=== PATIENT | female | born 1970 ===

== ENCOUNTER 2016-06-17 11:56 | Observation (INO) | payer MEDICAID ==
[2016-06-17 12:04] VITALS: BMI 34.5
[2016-06-17 12:53] LABS: BASO # 0.1 K/uL (0.0-0.2); BASO % 0.6 % (0.0-2.0); EOS # 0.2 K/uL (0.0-0.7); EOS % 2.4 % (0.0-4.0); HEMATOCRIT 40.6 % (34.0-47.0); LYMPH # 2.1 K/uL (1.0-4.3); LYMPH % 24.1 % (20.0-40.0); MEAN CORPUSCULAR HEMOGLOBIN 28.6 pg (27.0-31.0); MEAN CORPUSCULAR HGB CONC 32.5 g/dL (33.0-37.0); MEAN PLATELET VOLUME 8.3 fL (7.2-11.7); MONO # 0.6 K/uL (0.0-0.8); MONO % 6.9 % (0.0-10.0); RED CELL DISTRIBUTION WIDTH 13.3 % (11.5-14.5); WHITE BLOOD COUNT 8.9 K/uL (4.8-10.8)
[2016-06-17 13:00] LABS: CHLORIDE 102 mmol/L (98-107)
[2016-06-17 13:01] LABS: POTASSIUM 4.1 mmol/L (3.6-5.2); SODIUM 140 mmol/L (132-148)
[2016-06-17 13:03] LABS: BILIRUBIN,TOTAL 0.2 mg/dL (0.2-1.3); CARBON DIOXIDE 25 mmol/L (22-30); GFR AFRICAN-AMERICAN > 60
[2016-06-17 13:04] LABS: ALB/GLOB RATIO 1.4 (1.0-2.1); ALKALINE PHOSPHATASE 42 U/L (38-126); ALT/SGPT 20 U/L (9-52); AST/SGOT 16 U/L (14-36); BLOOD UREA NITROGEN 14 mg/dL (7-17); CALCIUM 8.2 mg/dl (8.6-10.4); GLUCOSE,RANDOM 92 mg/dL (65-105); TOTAL PROTEIN 6.5 g/dL (6.3-8.3)
[2016-06-17 13:05] LABS: RBC URINE 2 /hpf (0-3); URINE BILIRUBIN NEGATIVE (NEGATIVE); URINE BLOOD NEGATIVE (NEGATIVE); URINE COLOR Yellow (YELLOW); URINE GLUCOSE (UA) NORMAL (Normal); URINE KETONE NEGATIVE (NEGATIVE); URINE LEUKOCYTE ESTERASE NEG Leu/uL (Negative); URINE PROTEIN NEGATIVE (NEGATIVE); URINE UROBILINOGEN NORMAL mg/dL (0.2-1.0); WBC URINE 3 /hpf (0-5)
--- NOTE | 2016-06-17 14:37 | C.PDOC ---
History Of Present Illness Patient is a 46 y/o female, whose PMHx includes HTN, that presents to the ED for evaluation of intermittent chest pain for the last 5-6 days. Otherwise, denies any shortness of breath, headache, fever, chills, cough, nausea, vomiting , diarrhea, diaphoresis, jaw pain, back pain, lower extremity pain/swelling, or any other associated symptoms at this time. Chief Complaint (Nursing): Chest Pain History Per: Patient History/Exam Limitations: no limitations Onset/Duration Of Symptoms: Days (6) Current Symptoms Are (Timing): Still Present Quality: "Pain" Associated Symptoms: denies: Nausea, Dyspnea, Diaphoresis, Syncope Modifying Factors: None Exacerbating Factors: None Alleviating Factors: None Recent travel outside of the [place]: No Additional History Per: Patient Past Medical History Reviewed: Historical Data, Nursing Documentation, Vital Signs Vital Signs: Last Vital Signs Temp 98.3 F 06/17/16 15:03 Pulse 72 06/17/16 15:03 Resp 20 06/17/16 15:03 BP 137/95 H 06/17/16 15:03 Pulse Ox 99 06/17/16 15:46 - Medical History PMH: Gastritis, HTN Denies: Chronic Kidney Disease Surgical History: Endoscopy - [facility] Procedures APPLICATION OF SPLINT (09/18/13) CORONAR ARTERIOGR-2 CATH (09/21/14) LEFT HEART CARDIAC CATH (09/21/14) LT HEART ANGIOCARDIOGRAM (09/21/14) Family History: States: Unknown Family Hx, DC - Social History Hx Tobacco Use: No Hx Alcohol Use: Yes Hx Substance Use: No - Immunization History Hx Tetanus Toxoid Vaccination: No Hx Influenza Vaccination: No Hx Pneumococcal Vaccination: No Review Of Systems Except As Marked, All Systems Reviewed And Found Negative. Constitutional: Negative for: Fever, Chills Cardiovascular: Positive for: Chest Pain. Negative for: Palpitations, Edema, Light Headedness Respiratory: Negative for: Cough, Shortness of Breath, Sputum, Wheezing Gastrointestinal: Negative for: Nausea, Vomiting, Abdominal Pain Neurological: Negative for: Headache, Dizziness Physical Exam - Physical Exam Appears: Non-toxic, No Acute Distress Skin: Normal Color, Warm, Dry Head: Atraumatic, Normacephalic Eye(s): bilateral: Normal Inspection, EOMI Neck: Normal ROM, Supple Chest: Symmetrical, No Tenderness Cardiovascular: Rhythm Regular Respiratory: Normal Breath Sounds, No Rales, No Rhonchi, No Wheezing Gastrointestinal/Abdominal: Soft, No Tenderness Extremity: Normal ROM, No Pedal Edema, No Deformity Neurological/Psych: Oriented x3, Normal Speech, Normal Cognition ED Course And Treatment - Laboratory Results Result Diagrams: 06/17/16 12:49 06/17/16 12:49 ECG: Interpreted By Me, Viewed By Me ECG Rhythm: Sinus Rhythm ECG Interpretation: No Acute Changes Interpretation Of ECG: Some ST wave elevations. Rate From EC (bpm) O2 Sat by Pulse Oximetry: 99 (on RA) Pulse Ox Interpretation: Normal Progress Note: Labs, EKG, CXR ordered and reviewed. Spoke with hospitalist digital content producer, Dr. Salamanca, who [facility]. Disposition - Disposition Disposition: HOSPITALIZED Disposition Time: 14:37 Condition: FAIR - Clinical Impression Clinical Impression: Chest pain - PA / MARINE FIRER / Resident Statement MD/DO has reviewed & agrees with the documentation as recorded. - Scribe Statement The provider has reviewed the documentation as recorded by the Scribe Brooklynn Bedoya All medical record entries made by the Scribe were at my direction and personally dictated by me. I have reviewed the chart and agree that the record accurately reflects my personal performance of the history, physical exam, medical decision making, and the department course for this patient. I have also personally directed, reviewed, and agree with the discharge instructions and disposition. Decision To Admit - Pt Status Changed To: Hospital Disposition Of: Observation - . Bed Request Type: Telemetry Admitting Physician: Yoel Salamanca Patient Diagnosis: Chest pain
--- NOTE | 2016-06-17 16:02 | CP.PCM.HP ---
<Mario Hart - Last Filed: 06/17/16 18:29> History of Present Illness - History of Present Illness History of Present Illness: CC: Chest pain x 1 week HPI: This is a 46 yo F with PMH significant for HTN and an abnormal stress test that presents with 1 week of sharp and dull chest pain. She states that the pain is left sided and radiates down to her left arm. She does not remember what she was doing when it first began. She states that it fluctuates in intensity and is not dependent upon exertion. Pain is not reproducible with palpation. She does not become sob, diaphoretic or nauseous during the episodes. She was seen back in August of 2014 after being sent in by Dr Hawley after failing a stress test. She had a cardiac catheterization at the time, which was unremarkable and the pt was discharged home in stable condition. Currently, she has minimal chest pain. Denies any fevers, chills, headache, palpitations, cough, nausea, vomiting or any other somatic complaints. PMHx: HTN, left torn knee PSHx: none Home Meds: Unsure, thinks amlodipine but doesnt know dose Allergies: NKDA FMHx: father from [place] at 74, mother from [place] at 50, sister from [place] at 46. Social: Denies smoke/drink/ETOH Present on Admission - Present on Admission Any Indicators Present on Admission: No Review of Systems - Constitutional Constitutional: absent: Chills, Fever - EENT Eyes: absent: Blurred Vision, Pain - Cardiovascular Cardiovascular: Chest Pain. absent: Dyspnea - Respiratory Respiratory: absent: Cough, Dyspnea - Gastrointestinal Gastrointestinal: absent: Nausea, Vomiting - Musculoskeletal Musculoskeletal: absent: Muscle Weakness, Stiffness - Integumentary Integumentary: absent: Pruritus, Rash - Neurological Neurological: absent: Numbness, Tingling Past Patient History - Infectious Disease Hx of Infectious Diseases: None - Past Medical History & Family History Past Medical History?: Yes - Past Social History Smoking Status: Never Smoked - CARDIAC Hx Hypertension: Yes - PULMONARY Hx Respiratory Disorders: No - NEUROLOGICAL Hx Neurological Disorder: No - HEENT Hx HEENT Problems: No - RENAL Hx Chronic Kidney Disease: No - ENDOCRINE/METABOLIC Hx Endocrine Disorders: No - HEMATOLOGICAL/ONCOLOGICAL Hx Blood Disorders: No - INTEGUMENTARY Hx Dermatological Problems: Yes ("SWEET'S SYNDROME) Other/Comment: DIAGNOSED IN [facility] - MUSCULOSKELETAL/RHEUMATOLOGICAL Hx Musculoskeletal Disorders: No - GASTROINTESTINAL Hx Gastritis: Yes - GENITOURINARY/GYNECOLOGICAL Hx Genitourinary Disorders: No - PSYCHIATRIC Hx Substance Use: No - SURGICAL HISTORY Hx Surgeries: Yes - ANESTHESIA Hx Anesthesia: Yes Hx Anesthesia Reactions: No Hx Malignant Hyperthermia: No Meds Allergies/Adverse Reactions: Allergies Allergy/AdvReac Type Severity Reaction Status Date / Time No Known Allergies Allergy Verified 06/17/16 12:15 Physical Exam - Constitutional Appears: Well, Non-toxic, No Acute Distress - Head Exam Head Exam: ATRAUMATIC, NORMOCEPHALIC - Eye Exam Eye Exam: Normal appearance Pupil Exam: PERRL - ENT Exam ENT Exam: Mucous Membranes Moist - Respiratory Exam Respiratory Exam: Clear to Auscultation Bilateral, NORMAL BREATHING PATTERN - Cardiovascular Exam Cardiovascular Exam: +S1, +S2 - GI/Abdominal Exam GI & Abdominal Exam: Normal Bowel Sounds, Soft - Back Exam Back exam: NORMAL INSPECTION - Neurological Exam Neurological exam: Alert, Oriented x3 - Skin Skin Exam: Dry, Warm Results - Vital Signs Recent Vital Signs: Last Vital Signs Temp 98.3 F 06/17/16 15:03 Pulse 72 06/17/16 15:03 Resp 20 06/17/16 15:03 BP 137/95 H 06/17/16 15:03 Pulse Ox 99 06/17/16 15:46 - Labs Result Diagrams: 06/17/16 12:49 06/17/16 12:49 Assessment & Plan - Assessment and Plan (Free Text) Assessment: Chest pain - Abnormal stress test 09/07, unremarkable cath 09/07 - Pain is currently minimal, fluctuates in intensity and character, non- reproducible - EKG - no signs of ischemia - CXR - no active disease - IZABEL neg x 1, f/u serial IZABEL's - Labs: lipids, A1C, Thyroid - ASA, Crestor, resume - Cardiology Consult (Voudouris) - help appreciated - CT angio - dissection protocol - f/u - Echo - f/u HTN - Resume home meds - Losartan 100mg daily, HCTZ 25 mg Daily, Amlodipine 5mg Daily - Monitor and adjust as needed Sweet Syndrome - Being followed outpatient by Rheumatology - Continue Azathioprine 50mg Daily PPX - Protonix - Lovenox - Benadryl PRN insomnia <Mughni,Oyel - Last Filed: 06/18/16 08:13> Results - Vital Signs Recent Vital Signs: Last Vital Signs Temp 97.7 F 06/17/16 23:30 Pulse 79 06/17/16 23:30 Resp 20 06/17/16 23:30 BP 134/93 H 06/17/16 23:30 Pulse Ox 99 06/17/16 23:30 - Labs Result Diagrams: 06/18/16 06:58 06/18/16 06:58 Labs: Laboratory Results - last 24 hr 06/18/16 06:58 WBC 7.5 RBC 4.38 Hgb 12.8 Hct 38.4 MCV 87.8 MCH 29.3 MCHC 33.4 RDW 13.3 Plt Count 210 MPV 8.6 Neut % (Auto) 61.9 Lymph % (Auto) 28.3 [place] % (Auto) 6.2 Eos % (Auto) 2.8 Baso % (Auto) 0.8 Neut # 4.6 Lymph # 2.1 [place] # 0.5 Eos # 0.2 Baso # 0.1 Sodium 141 Potassium 4.8 Chloride 102 Carbon Dioxide 29 Anion Gap 14 BUN 11 Creatinine 0.7 Est GFR ( Amer) > 60 Est GFR (Non-Af Amer) > 60 Random Glucose 95 Calcium 7.9 L Total Bilirubin 0.5 AST 14 ALT 21 Alkaline Phosphatase 42 Total Creatine Kinase 33 CK-MB (Mass) < 0.22 Troponin I, Quant < 0.0120 Total Protein 5.7 L Albumin 3.3 L Globulin 2.4 Albumin/Globulin Ratio 1.4 Triglycerides 194 H D Cholesterol 138 LDL Cholesterol Direct 66 HDL Cholesterol 42 Thyroxine (T4) 5.15 L TSH 3rd Generation 1.96 Attending/Attestation - Attestation I have personally seen and examined this patient.: Yes I have fully participated in the care of the patient.: Yes I have reviewed all pertinent clinical information: Yes Notes (Text): Patient with sweet syndrome, htn, admitted for observation after presenting with chest pain since past 1 week; pain is relatively constant but fluctuates in intensity and radiates to left arm; History is significant for abrnormal stress test in 2015 but with normal cardiac cath; however, patient has a systemic inflammatory condition (sweet syndrome) that although under treatment with immunosuppressive med, may be a risk factor for CAD; further, she has a strong family history of heart disease with her mother and sister with premature from "heart attack"; also, 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
--- NOTE | 2016-06-17 16:51 | RAD ---
HISTORY: CP COMPARISON: 09/21/2014 FINDINGS: LUNGS: No active pulmonary disease. PLEURA: No significant pleural effusion identified, no pneumothorax apparent. CARDIOVASCULAR: The right-sided aortic arch. Normal heart size. OSSEOUS STRUCTURES: No significant abnormalities. VISUALIZED UPPER ABDOMEN: Normal. OTHER FINDINGS: None. IMPRESSION: No acute infiltrate.
[2016-06-18 00:25] VITALS: RESP 20
[2016-06-18 07:15] LABS: CHLORIDE 102 mmol/L (98-107); POTASSIUM 4.8 mmol/L (3.6-5.2); SODIUM 141 mmol/L (132-148)
[2016-06-18 07:16] LABS: BASO # 0.1 K/uL (0.0-0.2); BASO % 0.8 % (0.0-2.0); EOS # 0.2 K/uL (0.0-0.7); EOS % 2.8 % (0.0-4.0); HEMATOCRIT 38.4 % (34.0-47.0); LYMPH # 2.1 K/uL (1.0-4.3); LYMPH % 28.3 % (20.0-40.0); MEAN CELL VOLUME 87.8 fL (81.0-99.0); MEAN CORPUSCULAR HEMOGLOBIN 29.3 pg (27.0-31.0); MEAN CORPUSCULAR HGB CONC 33.4 g/dL (33.0-37.0); MEAN PLATELET VOLUME 8.6 fL (7.2-11.7); MONO # 0.5 K/uL (0.0-0.8); MONO % 6.2 % (0.0-10.0); NRBC % 0.1 % (0.0-2.0); RED CELL DISTRIBUTION WIDTH 13.3 % (11.5-14.5); WHITE BLOOD COUNT 7.5 K/uL (4.8-10.8)
[2016-06-18 07:17] LABS: ALB/GLOB RATIO 1.4 (1.0-2.1); AST/SGOT 14 U/L (14-36); BILIRUBIN,TOTAL 0.5 mg/dL (0.2-1.3); CARBON DIOXIDE 29 mmol/L (22-30); CHOLESTEROL 138 mg/dL (0-199); GFR AFRICAN-AMERICAN > 60; TOTAL PROTEIN 5.7 g/dL (6.3-8.3)
[2016-06-18 07:18] LABS: ALKALINE PHOSPHATASE 42 U/L (38-126); ALT/SGPT 21 U/L (9-52); BLOOD UREA NITROGEN 11 mg/dL (7-17); CALCIUM 7.9 mg/dl (8.6-10.4); GLUCOSE,RANDOM 95 mg/dL (65-105)
[2016-06-18 07:34] LABS: T4 5.15 ug/dL (5.5-11.0)
[2016-06-18 07:48] LABS: THYROID STIMULATING HORMONE 1.96 mIU/L (0.46-4.68)
[2016-06-18] MEDS: Enoxaparin 40 mg Syringe SC SCH ×2 (09:42→09:45)
[2016-06-18] MEDS: Pantoprazole 40 mg EC Tab PO SCH (09:42)
[2016-06-18] MEDS ORDERED: Iodixanol 320 MG/ML 100 ML BOTTLE IV ONE (09:55)
--- NOTE | 2016-06-18 12:00 | CT ---
PROCEDURE: CT Angiography Chest, Abdomen and Pelvis with and without intravenous contrast HISTORY: chest pain r/o dissection COMPARISON: CT abdomen/ pelvis 09/22/2014 TECHNIQUE: Contiguous axial images of the chest, abdomen and pelvis were obtained in the phase of aortic enhancement. A noncontrast enhanced CT of the chest was also obtained to evaluate for possible intramural thrombus. Coronal and sagittal reformats were generated. IV dose administered: 100 mL Visipaque 320 Radiation dose: Total exam DLP = 1484.52 mGy-cm. FINDINGS: CT ANGIOGRAPHY OF THE CHEST WITH & WITHOUT CONTRAST: AORTA (CHEST AND ABDOMEN): The thoracic and abdominal aorta are significant only for right-sided aortic arch with aberrant left subclavian artery, without aneurysm, dissection or rupture. No intramural thrombus identified in the thoracic aorta on the non-contrast ct of the chest. There is high-grade stenosis of the celiac axis as demonstrated on CT of 09/22/2014. The superior mesenteric artery is unremarkable in appearance. The renal arteries are unremarkable. The pelvic arteries are unremarkable. LUNGS: Mild nonspecific mosaic attenuation in both lower lobes. No consolidation. No pulmonary mass. MEDIASTINUM: Unremarkable. Normal caliber aorta and pulmonary arterial trunk. No aortic dissection. Normal size heart. LYMPH NODES: Unremarkable. PLEURA: Unremarkable. No pneumothorax. No pleural fluid. BONES: Unremarkable. OTHER FINDINGS: None. CT ANGIOGRAPHY OF THE ABDOMEN AND PELVIS WITH CONTRAST: LIVER: Unremarkable. No gross lesion or ductal dilatation. GALLBLADDER AND BILE DUCTS: Unremarkable. PANCREAS: Unremarkable. No gross lesion or ductal dilatation. SPLEEN: Unremarkable. ADRENALS: Unremarkable. No mass. KIDNEYS AND URETERS: Unremarkable. No hydronephrosis. No solid mass. VASCULATURE: Unremarkable. No aortic aneurysm. STOMACH AND BOWEL: Unremarkable. No obstruction. No gross mural thickening. APPENDIX: Normal appendix. PERITONEUM: Unremarkable. No free fluid. No free air. LYMPH NODES: Unremarkable. No enlarged lymph nodes. BLADDER: Visualized portions are unremarkable. REPRODUCTIVE: Unremarkable uterus. BONES: No acute fracture. OTHER FINDINGS: None. IMPRESSION: No evidence of thoracic or abdominal aortic dissection or aneurysm. 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 High-grade stenosis of the celiac axis unchanged from 09/22/2014. Stable mosaic attenuation of both lower lobes, nonspecific. No infiltrate. No additional abnormality.
--- NOTE | 2016-06-18 14:49 | CP.PCM.PN ---
Subjective - Date & Time of Evaluation Date of Evaluation: 06/18/16 Time of Evaluation: 14:45 - Subjective Subjective: PGY-1 note for medicine service Pt seen and examined at bedside. She continues to report waxing and waning chest pain that radiates down her left arm. Denies any diaphoresis, nausea, vomiting, sob, headaches, fevers or chills. Objective - Vital Signs/Intake and Output Vital Signs (last 24 hours): Temp Pulse Resp BP Pulse Ox 97.2 F L 71 20 136/86 100 06/18/16 08:00 06/18/16 08:00 06/18/16 08:00 06/18/16 08:00 06/18/16 08:00 Intake and Output: 06/18/16 06/18/16 06:59 18:59 Intake Total 100 Balance 100 - Medications Medications: Current Medications Amlodipine Besylate (Norvasc) 5 mg PO DAILY [facility] Last Admin: 06/18/16 09:42 Dose: 5 mg Aspirin (Aspirin Chewable) 81 mg PO DAILY [facility] Last Admin: 06/18/16 09:42 Dose: 81 mg Azathioprine (Imuran) 50 mg PO DAILY [facility] Last Admin: 06/18/16 09:42 Dose: 50 mg Diphenhydramine HCl (Benadryl) 25 mg PO HS PRN PRN Reason: Insomnia Last Admin: 06/17/16 22:02 Dose: 25 mg Enoxaparin Sodium (Lovenox) 40 mg SC DAILY [facility] Last Admin: 06/18/16 09:45 Dose: Not Given Hydrochlorothiazide (Hydrodiuril) 25 mg PO DAILY [facility] Last Admin: 06/18/16 09:42 Dose: 25 mg Losartan Potassium (Cozaar) 100 mg PO DAILY [facility] Last Admin: 06/18/16 09:42 Dose: 100 mg Pantoprazole Sodium (Protonix Ec Tab) 40 mg PO DAILY [facility] Last Admin: 06/18/16 09:42 Dose: 40 mg Paroxetine HCl (Paxil) 10 mg PO HS [facility] Last Admin: 06/17/16 22:02 Dose: 10 mg Rosuvastatin Calcium (Crestor) 5 mg PO HS [facility] Last Admin: 06/17/16 22:02 Dose: 5 mg - Labs Labs: 06/18/16 06:58 06/18/16 06:58 PT 11.7 SECONDS (9.7-12.2) 06/17/16 12:49 INR 1.0 06/17/16 12:49 APTT 30 SECONDS (21-34) 06/17/16 12:49 - Constitutional Appears: Non-toxic, No Acute Distress - Head Exam Head Exam: ATRAUMATIC, NORMOCEPHALIC - Eye Exam Eye Exam: Normal appearance - ENT Exam ENT Exam: Mucous Membranes Moist - Respiratory Exam Respiratory Exam: Clear to Ausculation Bilateral, NORMAL BREATHING PATTERN - Cardiovascular Exam Cardiovascular Exam: +S1, +S2 - GI/Abdominal Exam GI & Abdominal Exam: Soft, Normal Bowel Sounds - Extremities Exam Extremities Exam: Normal Capillary Refill, Normal Inspection - Back Exam Back Exam: NORMAL INSPECTION - Neurological Exam Neurological Exam: Alert, Awake - Skin Skin Exam: Dry, Warm Assessment and Plan - Assessment and Plan (Free Text) Assessment: Chest pain - Abnormal stress test 09/07, unremarkable cath 09/07 - Pain is currently minimal, fluctuates in intensity and character, non- reproducible - EKG - no signs of ischemia - CXR - no active disease - IZABEL neg x 3 - Labs: lipids, A1C, Thyroid - Trigs elevated - A1c - sunday - Thyroid - WNL - ASA, Crestor, resume - Cardiology Consult (Voudouris) - help appreciated - CT angio - dissection protocol - negative - Echo - f/u HTN - Resume home meds - Losartan 100mg daily, HCTZ 25 mg Daily, Amlodipine 5mg Daily - Monitor and adjust as needed Sweet Syndrome - Being followed outpatient by Rheumatology - Continue Azathioprine 50mg Daily PPX - Protonix - Lovenox - Benadryl PRN insomnia
[2016-06-19 08:13] LABS: BASO # 0.1 K/uL (0.0-0.2); BASO % 0.7 % (0.0-2.0); EOS # 0.2 K/uL (0.0-0.7); EOS % 2.5 % (0.0-4.0); HEMATOCRIT 41.5 % (34.0-47.0); LYMPH # 1.9 K/uL (1.0-4.3); LYMPH % 21.4 % (20.0-40.0); MEAN CELL VOLUME 86.5 fL (81.0-99.0); MEAN CORPUSCULAR HEMOGLOBIN 29.4 pg (27.0-31.0); MEAN PLATELET VOLUME 8.7 fL (7.2-11.7); MONO # 0.6 K/uL (0.0-0.8); MONO % 6.7 % (0.0-10.0); NRBC % 0.1 % (0.0-2.0); RED CELL DISTRIBUTION WIDTH 13.3 % (11.5-14.5); WHITE BLOOD COUNT 8.9 K/uL (4.8-10.8)
[2016-06-19 08:19] LABS: CHLORIDE 97 mmol/L (98-107); POTASSIUM 3.8 mmol/L (3.6-5.2); SODIUM 137 mmol/L (132-148)
[2016-06-19 08:22] LABS: ALB/GLOB RATIO 1.4 (1.0-2.1); ALKALINE PHOSPHATASE 41 U/L (38-126); ALT/SGPT 15 U/L (9-52); AST/SGOT 15 U/L (14-36); BILIRUBIN,TOTAL 0.4 mg/dL (0.2-1.3); BLOOD UREA NITROGEN 11 mg/dL (7-17); CARBON DIOXIDE 25 mmol/L (22-30); GFR AFRICAN-AMERICAN > 60; GLUCOSE,RANDOM 94 mg/dL (65-105)
[2016-06-19 08:23] LABS: CALCIUM 8.4 mg/dl (8.6-10.4)
[2016-06-19] MEDS: Enoxaparin 40 mg Syringe SC SCH (10:08)
[2016-06-19] MEDS: Pantoprazole 40 mg EC Tab PO SCH (10:08)
--- NOTE | 2016-06-19 10:08 | CP.PCM.PN ---
Subjective - Date & Time of Evaluation Date of Evaluation: 06/19/16 Time of Evaluation: 07:05 - Subjective Subjective: PGY-1 note for medicine service Pt seen and examined at bedside. She continues to report waxing and waning chest pain that radiates down her left arm. Denies any diaphoresis, nausea, vomiting, sob, headaches, fevers or chills. Objective - Vital Signs/Intake and Output Vital Signs (last 24 hours): Temp Pulse Resp BP Pulse Ox 97.7 F 83 20 115/81 98 06/19/16 00:05 06/19/16 00:05 06/19/16 00:05 06/19/16 00:05 06/19/16 00:05 Intake and Output: 06/19/16 06/19/16 06:59 18:59 Intake Total 440 Balance 440 - Medications Medications: Current Medications Amlodipine Besylate (Norvasc) 5 mg PO DAILY [facility] Last Admin: 06/18/16 09:42 Dose: 5 mg Aspirin (Aspirin Chewable) 81 mg PO DAILY [facility] Last Admin: 06/18/16 09:42 Dose: 81 mg Azathioprine (Imuran) 50 mg PO DAILY [facility] Last Admin: 06/18/16 09:42 Dose: 50 mg Diphenhydramine HCl (Benadryl) 25 mg PO HS PRN PRN Reason: Insomnia Last Admin: 06/18/16 21:29 Dose: 25 mg Enoxaparin Sodium (Lovenox) 40 mg SC DAILY [facility] Last Admin: 06/18/16 09:45 Dose: Not Given Hydrochlorothiazide (Hydrodiuril) 25 mg PO DAILY [facility] Last Admin: 06/18/16 09:42 Dose: 25 mg Losartan Potassium (Cozaar) 100 mg PO DAILY [facility] Last Admin: 06/18/16 09:42 Dose: 100 mg Pantoprazole Sodium (Protonix Ec Tab) 40 mg PO DAILY [facility] Last Admin: 06/18/16 09:42 Dose: 40 mg Paroxetine HCl (Paxil) 10 mg PO HS [facility] Last Admin: 06/18/16 21:29 Dose: 10 mg Rosuvastatin Calcium (Crestor) 5 mg PO HS [facility] Last Admin: 06/18/16 21:31 Dose: 5 mg - Labs Labs: 06/19/16 08:02 06/19/16 08:02 PT 11.7 SECONDS (9.7-12.2) 06/17/16 12:49 INR 1.0 06/17/16 12:49 APTT 30 SECONDS (21-34) 06/17/16 12:49 - Additional Findings Additional findings: - Constitutional Appears: Non-toxic, No Acute Distress - Head Exam Head Exam: ATRAUMATIC, NORMOCEPHALIC - Eye Exam Eye Exam: Normal appearance - ENT Exam ENT Exam: Mucous Membranes Moist - Respiratory Exam Respiratory Exam: Clear to Ausculation Bilateral, NORMAL BREATHING PATTERN - Cardiovascular Exam Cardiovascular Exam: +S1, +S2 - GI/Abdominal Exam GI & Abdominal Exam: Soft, Normal Bowel Sounds - Extremities Exam Extremities Exam: Normal Capillary Refill, Normal Inspection - Back Exam Back Exam: NORMAL INSPECTION - Neurological Exam Neurological Exam: Alert, Awake - Skin Skin Exam: Dry, Warm Assessment and Plan - Assessment and Plan (Free Text) Assessment: Chest pain - Abnormal stress test 09/07, unremarkable cath 09/07 - Pain is currently minimal, fluctuates in intensity and character, non- reproducible - EKG - no signs of ischemia - CXR - no active disease - IZABEL neg x 3 - Labs: lipids, A1C, Thyroid - Trigs elevated - A1c - sunday - Thyroid - WNL - ASA, Crestor, resume - Cardiology Consult (Voudouris) - help appreciated - CT angio - dissection protocol - negative - Echo - f/u HTN - Resume home meds - Losartan 100mg daily, HCTZ 25 mg Daily, Amlodipine 5mg Daily - Monitor and adjust as needed Sweet Syndrome - Being followed outpatient by Rheumatology - Continue Azathioprine 50mg Daily PPX - Protonix - Lovenox - Benadryl PRN insomnia
[2016-06-19 10:29] VITALS: BP 117/84; PULSE 74; TEMP 97.9; O2SAT 100
--- NOTE | 2016-06-19 16:02 | CARD ---
APPROVED REPORT EXAM: Two-dimensional and M-mode echocardiogram with Doppler and color Doppler. Other Information Quality : GoodRhythm : INDICATION Dyspnea Chest Pain M-Mode DIMENSIONS RVDd2.18 (2.1-3.2cm)Left Atrium (MM)3.22 (2.5-4.0cm) IVSd0.81 (0.7-1.1cm)Aortic Root2.60 (2.2-3.7cm) LVDd4.49 (4.0-5.6cm)Aortic Cusp Exc.1.98 (1.5-2.0cm) PWd1.04 (0.7-1.1cm)FS (%) 29 % LVDs3.19 (2.0-3.8cm)LVEF (%)56 (>50%) Mitral Valve MV E Lmieufxf99.3cm/sMV A Haixeuog84.5cm/sE/A ratio0.7 TDI E/Lateral E'0.0E/Medial E'0.0 <Conclusion> normal size la,lv & ra rv. normal lv wall motion,thickness,systolic function with lvef of 55-60%. lv diastolic dysfunciton grade one. normal aortic,mitral,tv & pv. mild mr,trace tr. no pericardial effusion.
--- NOTE | 2016-06-19 20:58 | CP.PCM.DIS ---
Provider - Provider Date of Admission: 06/17/16 14:38 Attending physician: Yoel Salamanca MD Consults: Cardio: Dr. King Time Spent in preparation of Discharge (in minutes): 35 Hospital Course - Lab Results Lab Results: Most Recent Lab Values WBC 8.9 K/uL (4.8-10.8) 06/19/16 08:02 RBC 4.80 Mil/uL (3.80-5.20) 06/19/16 08:02 Hgb 14.1 g/dL (11.0-16.0) 06/19/16 08:02 Hct 41.5 % (34.0-47.0) 06/19/16 08:02 MCV 86.5 fL (81.0-99.0) 06/19/16 08:02 MCH 29.4 pg (27.0-31.0) 06/19/16 08:02 MCHC 34.0 g/dL (33.0-37.0) 06/19/16 08:02 RDW 13.3 % (11.5-14.5) 06/19/16 08:02 Plt Count 245 K/uL (130-400) 06/19/16 08:02 MPV 8.7 fL (7.2-11.7) 06/19/16 08:02 Neut % (Auto) 68.7 % (50.0-75.0) 06/19/16 08:02 Lymph % (Auto) 21.4 % (20.0-40.0) 06/19/16 08:02 Kern % (Auto) 6.7 % (0.0-10.0) 06/19/16 08:02 Eos % (Auto) 2.5 % (0.0-4.0) 06/19/16 08:02 Baso % (Auto) 0.7 % (0.0-2.0) 06/19/16 08:02 Neut # 6.1 K/uL (1.8-7.0) 06/19/16 08:02 Lymph # 1.9 K/uL (1.0-4.3) 06/19/16 08:02 Kern # 0.6 K/uL (0.0-0.8) 06/19/16 08:02 Eos # 0.2 K/uL (0.0-0.7) 06/19/16 08:02 Baso # 0.1 K/uL (0.0-0.2) 06/19/16 08:02 PT 11.7 SECONDS (9.7-12.2) 06/17/16 12:49 INR 1.0 06/17/16 12:49 APTT 30 SECONDS (21-34) 06/17/16 12:49 Sodium 137 mmol/L (132-148) 06/19/16 08:02 Potassium 3.8 mmol/L (3.6-5.2) 06/19/16 08:02 Chloride 97 mmol/L (98-107) L 06/19/16 08:02 Carbon Dioxide 25 mmol/L (22-30) 06/19/16 08:02 Anion Gap 18 (10-20) 06/19/16 08:02 BUN 11 mg/dL (7-17) 06/19/16 08:02 Creatinine 0.7 MG/DL (0.7-1.2) 06/19/16 08:02 Est GFR ( Amer) > 60 06/19/16 08:02 Est GFR (Non-Af Amer) > 60 06/19/16 08:02 Random Glucose 94 mg/dL (65-105) 06/19/16 08:02 Hemoglobin A1c 5.6 % (4.2-6.5) 06/18/16 06:58 Calcium 8.4 mg/dl (8.6-10.4) L 06/19/16 08:02 Total Bilirubin 0.4 mg/dL (0.2-1.3) 06/19/16 08:02 AST 15 U/L (14-36) 06/19/16 08:02 ALT 15 U/L (9-52) 06/19/16 08:02 Alkaline Phosphatase 41 U/L (38-126) 06/19/16 08:02 Total Creatine Kinase 33 U/L (30-135) 06/18/16 06:58 CK-MB (Mass) < 0.22 ng/mL (0.0-3.38) 06/18/16 06:58 Troponin I < 0.0120 ng/mL (0.00-0.120) 06/17/16 12:49 Troponin I, Quant < 0.0120 ng/mL (0.00-0.120) 06/18/16 06:58 Total Protein 6.0 g/dL (6.3-8.3) L 06/19/16 08:02 Albumin 3.5 g/dL (3.5-5.0) 06/19/16 08:02 Globulin 2.5 gm/dL (2.2-3.9) 06/19/16 08:02 Albumin/Globulin Ratio 1.4 (1.0-2.1) 06/19/16 08:02 Triglycerides 194 mg/dL (0-149) H D 06/18/16 06:58 Cholesterol 138 mg/dL (0-199) 06/18/16 06:58 LDL Cholesterol Direct 66 mg/dL (0-129) 06/18/16 06:58 HDL Cholesterol 42 mg/dL (30-70) 06/18/16 06:58 Thyroxine (T4) 5.15 ug/dL (5.5-11.0) L 06/18/16 06:58 TSH 3rd Generation 1.96 mIU/L (0.46-4.68) 06/18/16 06:58 Urine Color Yellow (YELLOW) 06/17/16 12:49 Urine Clarity Hazy (Clear) 06/17/16 12:49 Urine pH 5.0 (5.0-8.0) 06/17/16 12:49 Ur Specific [place] 1.029 (1.003-1.030) 06/17/16 12:49 Urine Protein Negative mg/dL (NEGATIVE) 06/17/16 12:49 Urine Glucose (UA) Normal mg/dL (Normal) 06/17/16 12:49 Urine Ketones Negative mg/dL (NEGATIVE) 06/17/16 12:49 Urine Blood Negative (NEGATIVE) 06/17/16 12:49 Urine Nitrate Negative (NEGATIVE) 06/17/16 12:49 Urine Bilirubin Negative (NEGATIVE) 06/17/16 12:49 Urine Urobilinogen Normal mg/dL (0.2-1.0) 06/17/16 12:49 Ur Leukocyte Esterase Neg Be/uL (Negative) 06/17/16 12:49 Urine WBC (Auto) 3 /hpf (0-5) 06/17/16 12:49 Urine RBC (Auto) 2 /hpf (0-3) 06/17/16 12:49 Ur Squamous Epith Cells 5 /hpf (0-5) 06/17/16 12:49 Urine HCG, Qual Negative (NEGATIVE) 06/17/16 12:49 - Hospital Course Hospital Course: Upon hospital admission: This is a 46 yo F with PMH significant for HTN and an abnormal stress test that presents with 1 week of sharp and dull chest pain. She states that the pain is left sided and radiates down to her left arm. She does not remember what she was doing when it first began. She states that it fluctuates in intensity and is not dependent upon exertion. Pain is not reproducible with palpation. She does not become sob, diaphoretic or nauseous during the episodes. She was seen back in August of 2014 after being sent in by Dr Hawley after failing a stress test. She had a cardiac catheterization at the time, which was unremarkable and the pt was discharged home in stable condition. Currently, she has minimal chest pain. Denies any fevers, chills, headache, palpitations, cough, nausea, vomiting or any other somatic complaints. PMHx: HTN, left torn knee PSHx: none Home Meds: Unsure, thinks amlodipine but doesnt know dose Allergies: NKDA FMHx: father from OR at 74, mother from OR at 50, sister from OR at 46. Social: Denies smoke/drink/ETOH During hospital course, the patient was evaluated and treated for the following : (1) Chest pain for which Abnormal stress test 09/07, unremarkable cath 09/07. Pain is currently minimal, fluctuates in intensity and character, non- reproducible. EKG - no signs of ischemia. CXR - no active disease. IZABEL neg x 3. Trigs elevated; A1c - 5.6; Thyroid - WNL. Patient tx with ASA, Crestor. Cardiology Consult (Marleen). CT angio - dissection protocol - negative. Echo read EF 55-60% and Diastolic dysfunction grade one. (2) HTN for which home meds were resumed: Losartan 100mg daily, HCTZ 25 mg Daily, Amlodipine 5mg Daily. 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 Continued Azathioprine 50mg Daily. Upon hospital discharge, the patient was provided with the following instructions: Patient is stable for discharge per Dr. Salamanca. Patient should resume all medications as outlined in this document. Additionally, patient should take the new medications listed below (scripts provided). 1. Please make an appointment and follow up with Primary Doctor within one week of discharge. If patient does not have a Primary Doctor, please follow up with [facility] to establish medical care, at [phone]. 2. Please make an appointment and follow up with your [facility] Spreader, Dr. King - to have a Cardiac Stress test performed as an outpatient. Patient should return to ED immediately if symptoms return or worsen. Instructions discussed with patient who understood and agreed. Newly prescribed medications: ASA 81mg PO daily Crestor 5mg PO HS Norvasc 5mg PO HS This is a summary of the patient's hospital admission, see chart for comprehensive detail. - Date & Time of H&P Date of H&P: 06/17/16 Time of H&P: 15:53 Discharge Exam - Additional Findings Additional findings: - Constitutional Appears: Non-toxic, No Acute Distress - Head Exam Head Exam: ATRAUMATIC, NORMOCEPHALIC - Eye Exam Eye Exam: Normal appearance - ENT Exam ENT Exam: Mucous Membranes Moist - Respiratory Exam Respiratory Exam: Clear to Ausculation Bilateral, NORMAL BREATHING PATTERN - Cardiovascular Exam Cardiovascular Exam: +S1, +S2 - GI/Abdominal Exam GI & Abdominal Exam: Soft, Normal Bowel Sounds - Extremities Exam Extremities Exam: Normal Capillary Refill, Normal Inspection - Back Exam Back Exam: NORMAL INSPECTION - Neurological Exam Neurological Exam: Alert, Awake - Skin Skin Exam: Dry, Warm Discharge Plan - Discharge Medications Prescriptions: Aspirin [Aspirin Chewable] 81 mg PO DAILY #30 chew Rosuvastatin Calcium [Crestor] 5 mg PO HS #30 tab amLODIPine [Norvasc] 5 mg PO DAILY #30 tab - Follow Up Plan Condition: FAIR Disposition: HOME/ ROUTINE Instructions: Aspirin/Codeine (By mouth), Amlodipine (By mouth), Rosuvastatin ( By mouth), Chest Pain (DC), Heart Healthy Diet (GEN) Additional Instructions: Patient is stable for discharge per Dr. Salamanca. Patient should resume all medications as outlined in this document. Additionally, patient should take the new medications listed below (scripts provided). 1. Please make an appointment and follow up with Primary Doctor within one week of discharge. If patient does not have a Primary Doctor, please follow up with [facility] to establish medical care, at [phone]. 2. Please make an appointment and follow up with your [facility] Spreader, Dr. King - to have a Cardiac Stress test performed as an outpatient. Patient should return to ED immediately if symptoms return or worsen. Instructions discussed with patient who understood and agreed. Newly prescribed medications: ASA 81mg PO daily Crestor 5mg PO HS Norvasc 5mg PO HS
--- NOTE | 2016-06-20 10:07 | CP.PCM.PN ---
Subjective - Date & Time of Evaluation Date of Evaluation: 06/20/16 Time of Evaluation: 10:05 - Subjective Subjective: Spoke with [facility] pharmacist, Marcos, reporting patient's insurance does not cover Crestor 5mg POqHS; switched to Simvastatin 20mg POqHS which is approved per discussion with pharmacist.; No allergies reported per EMR. (Pharmacy: ) Objective - Vital Signs/Intake and Output Vital Signs (last 24 hours): Temp Pulse Resp BP Pulse Ox 97.9 F 74 20 117/84 100 06/19/16 10:28 06/19/16 10:28 06/19/16 10:28 06/19/16 10:28 06/19/16 10:28 - Labs Labs: 06/19/16 08:02 06/19/16 08:02 PT 11.7 SECONDS (9.7-12.2) 06/17/16 12:49 INR 1.0 06/17/16 12:49 APTT 30 SECONDS (21-34) 06/17/16 12:49
--- NOTE | 2016-06-20 23:50 | CP.PCM.CON ---
History of Present Illness - History of Present Illness History of Present Illness: CC chest pain HPI 46 y/o hisp female admitted due to recurrent atypical/typical chest pain for a few days.Pt described the chest paim as precordial and radiating to left arm and not associated to effort. Pt had a cardiac cath in Mar 2015 which revealed normal coronaries and normal LVgram. Trops - negative Review of Systems - Constitutional Constitutional: absent: Daytime Sleepiness, Lethargy, Malaise, Snoring, Sleep Apnea - EENT Eyes: absent: Photophobia Ears: absent: Tinnitus Nose/Mouth/Throat: absent: Neck Pain - Cardiovascular Cardiovascular: Chest Pain, Chest Pain at Rest, Chest Pain with Activity, Palpitations - Respiratory Respiratory: Dyspnea - Gastrointestinal Gastrointestinal: absent: Abdominal Pain, Cramping - Musculoskeletal Musculoskeletal: absent: Back Pain, Muscle Weakness, Myalgias Past Patient History - Infectious Disease Hx of Infectious Diseases: None - Past Medical History & Family History Past Medical History?: Yes - Past Social History Smoking Status: Never Smoked - CARDIAC Hx Hypertension: Yes - PULMONARY Hx Respiratory Disorders: No - NEUROLOGICAL Hx Neurological Disorder: No - HEENT Hx HEENT Problems: No - RENAL Hx Chronic Kidney Disease: No - ENDOCRINE/METABOLIC Hx Endocrine Disorders: No - HEMATOLOGICAL/ONCOLOGICAL Hx Blood Disorders: No - INTEGUMENTARY Hx Dermatological Problems: Yes ("SWEET'S SYNDROME) Other/Comment: DIAGNOSED IN [facility] - MUSCULOSKELETAL/RHEUMATOLOGICAL Hx Musculoskeletal Disorders: No - GASTROINTESTINAL Hx Gastritis: Yes - GENITOURINARY/GYNECOLOGICAL Hx Genitourinary Disorders: No - PSYCHIATRIC Hx Substance Use: No - SURGICAL HISTORY Hx Surgeries: Yes - ANESTHESIA Hx Anesthesia: Yes Hx Anesthesia Reactions: No Hx Malignant Hyperthermia: No Meds Home Medications: Home Medication List Medication Instructions Recorded Confirmed Type Aspirin [Aspirin Chewable] 81 mg PO DAILY #30 chew 06/19/16 Rx Losartan [Cozaar] 100 mg PO DAILY tab 06/19/16 Rx PARoxetine [Paxil] 10 mg PO HS tab 06/19/16 Rx Rosuvastatin Calcium [Crestor] 5 mg PO HS #30 tab 06/19/16 Rx amLODIPine [Norvasc] 5 mg PO DAILY #30 tab 06/19/16 Rx azaTHIOprine [Imuran] 50 mg PO DAILY tab 06/19/16 Rx hydroCHLOROthiazide [Hydrodiuril] 25 mg PO DAILY tab 06/19/16 Rx predniSONE [predniSONE Tab] 10 mg PO DAILY tab 06/19/16 Rx Allergies/Adverse Reactions: Allergies Allergy/AdvReac Type Severity Reaction Status Date / Time No Known Allergies Allergy Verified 06/17/16 12:15 Physical Exam - Constitutional Appears: Non-toxic - Head Exam Head Exam: NORMAL INSPECTION - Eye Exam Eye Exam: PERRL. absent: Scleral icterus - ENT Exam ENT Exam: Mucous Membranes Moist - Respiratory Exam Respiratory Exam: Clear to Auscultation Bilateral - Cardiovascular Exam Cardiovascular Exam: REGULAR RHYTHM - GI/Abdominal Exam GI & Abdominal Exam: Normal Bowel Sounds, Soft - Extremities Exam Extremities exam: Positive for: calf tenderness. Negative for: pedal edema - Neurological Exam Neurological exam: Alert, CN II-XII Intact, Oriented x3 Results - Vital Signs Recent Vital Signs: Last Vital Signs Temp 97.9 F 06/19/16 10:28 Pulse 74 06/19/16 10:28 Resp 20 06/19/16 10:28 BP 117/84 06/19/16 10:28 Pulse Ox 100 06/19/16 10:28 - Labs Result Diagrams: 06/19/16 08:02 06/19/16 08:02 Assessment & Plan - Assessment and Plan (Free Text) Assessment: Atypical Chest pain - doubt CAD Anxiety Plan: Pt can be discharged and continue work up as outpatient.
== END 2016-06-19 14:08 | disposition home or self-care (01) ==
LOC: C.ER 11:56 → C.9E 14:38 → C.5T 18:02
PROVIDERS: ADMIT Internal Medicine Nephrology; ATTEND Internal Medicine Nephrology
DX: R07.9 Chest pain, unspecified (principal); I12.9 Hypertensive chronic kidney disease with stage 1 through stage 4 chronic kidney disease, or unspecified chronic kidney disease; N18.9 Chronic kidney disease, unspecified; L98.2 Febrile neutrophilic dermatosis [Sweet]
CPT/HCPCS: 36415 ×2; 71010; 71275; 74175; 80053 ×3; 80061; 81001; 82550; 82553; 83036; 84436; 84443; 84484 ×2; 84703; 85025 ×3; 85610; 85730; 93005; 93306; 99284; G0378 ×3; J7500 ×2; Q9967

== ENCOUNTER 2017-01-16 11:15 | Emergency (ER) | payer MEDICAID, OTHER ==
[2017-01-16 11:15] VITALS: BMI 34.5
[2017-01-16 11:26] VITALS: RESP 18; O2SAT 100
[2017-01-16] MEDS ORDERED: Sodium Chloride 0.9% 1,000 ML IV ONE (12:25)
[2017-01-16] MEDS ORDERED: Sodium Chloride 0.9% 1,000 ML ONE (12:38)
[2017-01-16 12:59] LABS: BASO # 0.1 K/uL (0.0-0.2); BASO % 0.9 % (0.0-2.0); EOS # 0.2 K/uL (0.0-0.7); EOS % 1.9 % (0.0-4.0); HEMATOCRIT 40.2 % (34.0-47.0); LYMPH # 2.8 K/uL (1.0-4.3); LYMPH % 30.8 % (20.0-40.0); MEAN CELL VOLUME 88.2 fL (81.0-99.0); MEAN CORPUSCULAR HEMOGLOBIN 30.5 pg (27.0-31.0); MEAN CORPUSCULAR HGB CONC 34.5 g/dL (33.0-37.0); MEAN PLATELET VOLUME 8.2 fL (7.2-11.7); MONO # 0.4 K/uL (0.0-0.8); MONO % 4.6 % (0.0-10.0); RED CELL DISTRIBUTION WIDTH 13.6 % (11.5-14.5)
[2017-01-16 13:08] LABS: CHLORIDE 101 mmol/L (98-107); POTASSIUM 3.8 mmol/L (3.6-5.2); SODIUM 134 mmol/L (132-148)
[2017-01-16 13:10] LABS: ALB/GLOB RATIO 1.1 (1.0-2.1); AST/SGOT 13 U/L (14-36); BILIRUBIN,TOTAL 0.6 mg/dL (0.2-1.3); CARBON DIOXIDE 23 mmol/L (22-30); GFR AFRICAN-AMERICAN > 60; TOTAL PROTEIN 7.2 g/dL (6.3-8.3)
[2017-01-16 13:11] LABS: ALKALINE PHOSPHATASE 51 U/L (38-126); ALT/SGPT 24 U/L (9-52); BLOOD UREA NITROGEN 12 mg/dL (7-17); CALCIUM 8.8 mg/dl (8.6-10.4); GLUCOSE,RANDOM 78 mg/dL (65-105)
--- NOTE | 2017-01-16 13:56 | C.PDOC ---
History Of Present Illness 46 year old female presents to ED with two complaints of low back pain and epigastric abdominal pain. She reports right lower back pain which radiates down the leg for several months. For the past few days pain worse and had been taking aleve, which may have upset her stomach and for 2 days complains of epigastric abdominal pain and fullness. She states she has been told has gastritis but does not take medication. She denies any fever, vomiting, diarrhea , constipation, dysuria, numbness or weakness. Time Seen by Provider: 01/16/17 11:40 Chief Complaint (Nursing): Abdominal Pain History Per: Patient History/Exam Limitations: no limitations Onset/Duration Of Symptoms: Days Current Symptoms Are (Timing): Still Present Recent travel outside of the [place]: No Additional History Per: Patient Past Medical History Reviewed: Historical Data, Nursing Documentation, Vital Signs Vital Signs: Last Vital Signs Temp 97.3 F L 01/16/17 14:54 Pulse 73 01/16/17 14:54 Resp 18 01/16/17 14:54 BP 145/100 H 01/16/17 14:54 Pulse Ox 100 01/16/17 14:54 - Medical History PMH: Gastritis, HTN Denies: Chronic Kidney Disease Surgical History: Endoscopy - [facility] Procedures APPLICATION OF SPLINT (09/18/13) CORONAR ARTERIOGR-2 CATH (09/21/14) LEFT HEART CARDIAC CATH (09/21/14) LT HEART ANGIOCARDIOGRAM (09/21/14) Family History: States: Unknown Family Hx, [place] - Social History Hx Tobacco Use: No Hx Alcohol Use: Yes ("social") Hx Substance Use: No - Immunization History Hx Tetanus Toxoid Vaccination: No Hx Influenza Vaccination: No Hx Pneumococcal Vaccination: No Review Of Systems Except As Marked, All Systems Reviewed And Found Negative. Constitutional: Negative for: Fever, Chills Gastrointestinal: Positive for: Abdominal Pain (epigastric). Negative for: Nausea, Vomiting, Diarrhea, Constipation Genitourinary: Negative for: Dysuria, Frequency, Incontinence, Hematuria Musculoskeletal: Positive for: Back Pain (low) Neurological: Negative for: Weakness, Numbness Physical Exam - Physical Exam Appears: Non-toxic, No Acute Distress Skin: Normal Color, Warm, Dry Head: Atraumatic, Normacephalic Eye(s): bilateral: Normal Inspection Oral Mucosa: Moist Neck: Normal ROM, Supple Chest: Symmetrical Cardiovascular: Rhythm Regular, No Murmur Respiratory: Normal Breath Sounds, No Rales, No Rhonchi, No Wheezing Gastrointestinal/Abdominal: Bowel Sounds (normal), Soft, Tenderness (minimal epigastric), No Guarding, No Rebound Back: No CVA Tenderness, No Vertebral Tenderness, Paraspinal Tenderness (mild paralumbar) Extremity: Bilateral: Atraumatic, Normal ROM Neurological/Psych: Oriented x3, Normal Speech Gait: Steady ED Course And Treatment - Laboratory Results Result Diagrams: 01/16/17 12:55 01/16/17 12:55 O2 Sat by Pulse Oximetry: 100 (RA) Pulse Ox Interpretation: Normal Medical Decision Making Medical Decision Making: Impression: sciatica type pain and epigastric abdominal pain Plan: * labs * UA * LS spine Progress: Patient treated with IV NS, Toradol and pepcid Labs reviewed unremarkable XRay shows no fracture or subluxation Patient remained afebrile alert and oriented with stable vital signs during ER evaluation. Discussed results with patient, and copy of report were provided. On re-examination, patient is resting comfortably in no acute distress. Patient reports improvement of back and abdominal pain. Patient feels comfortable going home and will be discharged. Patient given follow up instructions. Instructed to return to ER if symptoms worsen or new symptoms arise. Disposition Counseled Patient/Family Regarding: Diagnosis, Need For Followup, Rx Given - Disposition Referrals: Juno Begum [Staff Provider] - Disposition: HOME/ ROUTINE Disposition Time: 14:48 Condition: STABLE Additional Instructions: Luiza por dejarnos atenderlo hoy. Miranda proveedor fue PA Sanchez. Te trataron por dolor abdominal y citica. Елена laboratorios y saroj fueron normales. Елена recetas fueron enviadas a la farmacia. Por favor norman un seguimiento con miranda m dico primario para manjeet evaluacin adicional. Luiza por permitir que el equipo de [employer] sea parte de miranda cuidado hoy. Prescriptions: Cyclobenzaprine [Cyclobenzaprine HCl] 10 mg PO TID #21 tab Omeprazole 20 mg PO DAILY #30 capsule. Instructions: Sciatica (ED), Acute Abdominal Pain (DC) Forms: Dining Secretary (Wallisian) Print Language: YI - POA Present On Arrival: None - Clinical Impression Clinical Impression: Sciatica, Epigastric abdominal pain - PA / DIABETES EDUCATOR / Resident Statement MD/DO has reviewed & agrees with the documentation as recorded. - Scribe Statement The provider has reviewed the documentation as recorded by the Jozefibe Brooklynn Bedoya All medical record entries made by the Jozefibsrikanth were at my direction and personally dictated by me. I have reviewed the chart and agree that the record accurately reflects my personal performance of the history, physical exam, medical decision making, and the department course for this patient. I have also personally directed, reviewed, and agree with the discharge instructions and disposition.
[2017-01-16 14:02] LABS: RBC URINE 2 /hpf (0-3); URINE BILIRUBIN NEGATIVE (NEGATIVE); URINE BLOOD NEGATIVE (NEGATIVE); URINE COLOR Yellow (YELLOW); URINE GLUCOSE (UA) NORMAL (Normal); URINE KETONE NEGATIVE (NEGATIVE); URINE LEUKOCYTE ESTERASE NEG Leu/uL (Negative); URINE PROTEIN NEGATIVE (NEGATIVE); URINE UROBILINOGEN NORMAL mg/dL (0.2-1.0); WBC URINE 1 /hpf (0-5)
[2017-01-16 14:56] VITALS: BP 145/100; PULSE 73; TEMP 97.3
--- NOTE | 2017-01-16 16:42 | RAD ---
PROCEDURE: Radiographs of the Lumbar Spine. HISTORY: low back pain, right side worse and radiates leg COMPARISON: No prior. FINDINGS: BONES: Normal alignment. No listhesis. No fracture. Anterior endplate spurring-most pronounced T12. Lesser degrees L1-L2 L3 and L4 X most affected is the L2-3 level. DISC SPACES: Unremarkable. OTHER FINDINGS: None. IMPRESSION: No fracture. Spondylosis
== END 2017-01-16 14:56 | disposition home or self-care (01) ==
LOC: C.ER 11:15
DX: M54.31 Sciatica, right side (principal); R10.13 Epigastric pain
CPT/HCPCS: 72100; 80053; 81001; 83690; 84703; 85025; 96361; 96374; 96375; 99285; J1885; J7040

== ENCOUNTER 2017-02-14 21:22 | Emergency (ER) | payer MEDICAID ==
[2017-02-14 21:22] VITALS: BMI 34.5
[2017-02-14 21:54] VITALS: O2SAT 100
[2017-02-14 22:13] LABS: BASO # 0.1 K/uL (0.0-0.2); BASO % 0.9 % (0.0-2.0); EOS # 0.3 K/uL (0.0-0.7); EOS % 2.8 % (0.0-4.0); HEMATOCRIT 41.5 % (34.0-47.0); MEAN CELL VOLUME 87.7 fL (81.0-99.0); MEAN CORPUSCULAR HEMOGLOBIN 29.9 pg (27.0-31.0); MEAN CORPUSCULAR HGB CONC 34.1 g/dL (33.0-37.0); MONO # 0.4 K/uL (0.0-0.8); MONO % 4.6 % (0.0-10.0); RED CELL DISTRIBUTION WIDTH 13.3 % (11.5-14.5); WHITE BLOOD COUNT 9.8 K/uL (4.8-10.8)
--- NOTE | 2017-02-14 22:20 | C.PDOC ---
History Of Present Illness 46 year old female with a Hx of HTN with a complaint of abdominal pain and chest pain for the past 2 days, worse at the epigastric region. Denies fever, cough, or other complaints. Time Seen by Provider: 02/14/17 21:27 Chief Complaint (Nursing): Chest Pain History Per: Patient History/Exam Limitations: no limitations Onset/Duration Of Symptoms: Days Current Symptoms Are (Timing): Still Present Quality: "Pain" Associated Symptoms: denies: Nausea, Dyspnea, Diaphoresis, Syncope Modifying Factors: None Exacerbating Factors: None Alleviating Factors: None Recent travel outside of the [place]: No Past Medical History Reviewed: Historical Data, Nursing Documentation, Vital Signs Vital Signs: Last Vital Signs Temp 98.0 F 02/14/17 23:44 Pulse 79 02/14/17 23:44 Resp 18 02/14/17 23:44 BP 137/98 H 02/14/17 23:44 Pulse Ox 100 02/17/17 19:31 - Medical History PMH: Gastritis, HTN Surgical History: Endoscopy - [facility] Procedures APPLICATION OF SPLINT (09/18/13) CORONAR ARTERIOGR-2 CATH (09/21/14) LEFT HEART CARDIAC CATH (09/21/14) LT HEART ANGIOCARDIOGRAM (09/21/14) Family History: States: Unknown Family Hx, [place] - Social History Hx Tobacco Use: No Hx Alcohol Use: Yes ("social") Hx Substance Use: No - Immunization History Hx Tetanus Toxoid Vaccination: No Hx Influenza Vaccination: No Hx Pneumococcal Vaccination: No Review Of Systems Constitutional: Negative for: Fever, Chills Gastrointestinal: Positive for: Abdominal Pain. Negative for: Nausea, Vomiting , Diarrhea Musculoskeletal: Positive for: Other (Chest wall pain) Physical Exam - Physical Exam Appears: Non-toxic, No Acute Distress Skin: Normal Color, Warm, Dry Head: Atraumatic, Normacephalic Oral Mucosa: Moist Chest: Symmetrical, No Tenderness Cardiovascular: Rhythm Regular Respiratory: Normal Breath Sounds, No Rales, No Rhonchi, No Wheezing Gastrointestinal/Abdominal: Soft, Tenderness (Epigastric), No Guarding, No Rebound Neurological/Psych: Oriented x3, Normal Speech, Normal Cognition ED Course And Treatment - Laboratory Results Result Diagrams: 02/14/17 22:09 02/14/17 22:09 O2 Sat by Pulse Oximetry: 100 (Room air) Pulse Ox Interpretation: Normal Medical Decision Making Medical Decision Making: EKG, blood work, urinalysis, and CXR ordered. Protonix administered. atypcial cp- recent cath neg. pt offered admission. declines, states pain improved. Disposition - Disposition Referrals: Baldo Palmer MD [Staff Provider] - Avila Martin MD [Staff Provider] - Disposition: HOME/ ROUTINE Disposition Time: 07:00 Condition: STABLE Additional Instructions: please follow up with your doctor. return to er with worsening symptoms or concerns. please see specialists. Prescriptions: Famotidine [Pepcid] 20 mg PO DAILY #20 tab Instructions: Chest Pain (ED), Acute Abdominal Pain (ED) Forms: [employer] (Romansh) Print Language: BELGIAN - Clinical Impression Clinical Impression: Chest pain, Abdominal pain - Scribe Statement The provider has reviewed the documentation as recorded by the Scribe Gianluca Haider All medical record entries made by the Scribe were at my direction and personally dictated by me. I have reviewed the chart and agree that the record accurately reflects my personal performance of the history, physical exam, medical decision making, and the department course for this patient. I have also personally directed, reviewed, and agree with the discharge instructions and disposition.
[2017-02-14 22:23] LABS: ALB/GLOB RATIO 1.5 (1.0-2.1); ALKALINE PHOSPHATASE 56 U/L (38-126); ALT/SGPT 35 U/L (9-52); AST/SGOT 18 U/L (14-36); BILIRUBIN,TOTAL 0.7 mg/dL (0.2-1.3); BLOOD UREA NITROGEN 11 mg/dL (7-17); CALCIUM 8.4 mg/dl (8.6-10.4); CARBON DIOXIDE 26 mmol/L (22-30); CHLORIDE 101 mmol/L (98-107); GFR AFRICAN-AMERICAN > 60; GLUCOSE,RANDOM 93 mg/dL (65-105); POTASSIUM 4.9 mmol/L (3.6-5.2); SODIUM 134 mmol/L (132-148); TOTAL PROTEIN 6.6 g/dL (6.3-8.3)
[2017-02-14 22:28] LABS: BILIRUBIN,DIRECT 0.5 mg/dL (0.0-0.4)
[2017-02-14] MEDS ORDERED: Aluminum Hydroxide/Magnesium Hydroxide Susp (30 mL) PO STA (22:45)
[2017-02-14 22:48] LABS: RBC URINE < 1 /hpf (0-3); TRANSITIONAL EPITHIAL < 1 /hpf (0-3); URINE BACTERIA OCC (<OCC); URINE BILIRUBIN NEGATIVE (NEGATIVE); URINE BLOOD NEGATIVE (NEGATIVE); URINE COLOR Yellow (YELLOW); URINE GLUCOSE (UA) NORMAL (Normal); URINE KETONE NEGATIVE (NEGATIVE); URINE LEUKOCYTE ESTERASE 1+ Leu/uL (Negative); URINE PROTEIN NEGATIVE (NEGATIVE); URINE UROBILINOGEN NORMAL mg/dL (0.2-1.0); WBC URINE 13 /hpf (0-5)
[2017-02-14] MEDS ORDERED: Alum-Mag Hydrox-Simethicone Susp (30 mL) ONE (22:55)
[2017-02-14 23:44] VITALS: BP 137/98; PULSE 79; RESP 18; TEMP 98
--- NOTE | 2017-02-15 10:09 | RAD ---
PROCEDURE: CHEST RADIOGRAPH, 1 VIEW HISTORY: chest pain COMPARISON: Comparison is made to 06/17/2016 FINDINGS: LUNGS: Suboptimal poor inspiratory study. No evidence of new infiltrate or consolidation in the lungs. PLEURA: No pneumothorax or pleural fluid seen. CARDIOVASCULAR: Normal. OSSEOUS STRUCTURES: No significant abnormalities. VISUALIZED UPPER ABDOMEN: Normal. OTHER FINDINGS: None. IMPRESSION: Suboptimal expiratory study. No active disease.
--- NOTE | 2017-02-18 15:57 | CARD ---
APPROVED REPORT EKG Measurement Heart [id number] <Conclusion> Normal sinus rhythm Anteroseptal infarct, age undetermined Abnormal ECG
== END 2017-02-14 23:46 | disposition home or self-care (01) ==
LOC: C.ER 21:22
DX: R10.13 Epigastric pain (principal); R07.9 Chest pain, unspecified
CPT/HCPCS: 71010; 80053; 81001; 82248; 83690; 84484; 84703; 85025; 85610; 85730; 93005; 96374; 96375; 99285; C9113; J1885

== ENCOUNTER 2017-06-11 11:13 | Emergency (ER) | payer MEDICAID ==
[2017-06-11 11:14] VITALS: BMI 34.5
[2017-06-11 11:28] VITALS: RESP 18
--- NOTE | 2017-06-11 13:16 | C.PDOC ---
History Of Present Illness 46 year old female presents to the ER with a complaint of cough for the past 3 days, associated with subjective fever and body aches. Patient reports she has been taking OTC medications with no relief. Denies vomiting, diarrhea, chest pain, SOB, hemoptysis, or recent travel. Time Seen by Provider: 06/11/17 11:38 Chief Complaint (Nursing): Cough, Cold, Congestion History Per: Patient History/Exam Limitations: no limitations Onset/Duration Of Symptoms: Days Current Symptoms Are (Timing): Still Present Location Of Pain: None Sick Contacts (Context): None Associated Symptoms: Fever (Subjective), Cough, Myalgias, Other (No chest pain, SOB, hemoptysis). denies: Vomiting, Diarrhea Ear Symptoms: Bilateral: None Recent travel outside of the [place]: No Past Medical History Reviewed: Historical Data, Nursing Documentation, Vital Signs Vital Signs: Last Vital Signs Temp 98.8 F 06/11/17 13:33 Pulse 78 06/11/17 13:33 Resp 18 06/11/17 13:33 BP 123/79 06/11/17 13:33 Pulse Ox 99 06/11/17 13:36 - Medical History PMH: Gastritis, HTN Surgical History: Endoscopy - [facility] Procedures APPLICATION OF SPLINT (09/18/13) CORONAR ARTERIOGR-2 CATH (09/21/14) LEFT HEART CARDIAC CATH (09/21/14) LT HEART ANGIOCARDIOGRAM (09/21/14) Family History: States: [place] - Social History Hx Tobacco Use: No Hx Alcohol Use: Yes ("social") Hx Substance Use: No - Immunization History Hx Tetanus Toxoid Vaccination: No Hx Influenza Vaccination: No Hx Pneumococcal Vaccination: No Review Of Systems Constitutional: Positive for: Fever (Subjective) Cardiovascular: Negative for: Chest Pain Respiratory: Positive for: Cough. Negative for: Shortness of Breath Gastrointestinal: Negative for: Vomiting, Diarrhea Musculoskeletal: Positive for: Other (Body aches) Physical Exam - Physical Exam Appears: Non-toxic Skin: Normal Color, Warm, Dry Head: Atraumatic, Normacephalic Eye(s): bilateral: Normal Inspection Ear(s): Bilateral: Normal Nose: Normal Oral Mucosa: Moist Throat: Normal, No Erythema, No Exudate Neck: Normal, Supple Chest: Symmetrical, No Tenderness Cardiovascular: Rhythm Regular Respiratory: Normal Breath Sounds, No Rales, No Rhonchi, No Wheezing Gastrointestinal/Abdominal: Soft, No Tenderness Neurological/Psych: Oriented x3, Normal Speech ED Course And Treatment O2 Sat by Pulse Oximetry: 99 (Room air) Pulse Ox Interpretation: Normal - Radiology CXR: Interpreted by Me, Viewed By Me CXR Interpretation: Yes: No Acute Disease. No: Infiltrates Medical Decision Making Medical Decision Making: CXR ordered, results were negative. Motrin and prednisone administered. On reevaluation, patient is resting comfortably in no acute distress, vitals are stable, will discharge home with Rx and instructions to follow up with PMD or return if symptoms worsen. Disposition - Disposition Referrals: Manuel Begum MD [Staff Provider] - Disposition: HOME/ ROUTINE Disposition Time: 13:00 Condition: GOOD Additional Instructions: Follow up with the medical doctor within 1-2 days. Return if worsened. 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 - Scribe Statement The provider has reviewed the documentation as recorded by the Scribsrikanth Haider All medical record entries made by the Scribe were at my direction and personally dictated by me. I have reviewed the chart and agree that the record accurately reflects my personal performance of the history, physical exam, medical decision making, and the department course for this patient. I have also personally directed, reviewed, and agree with the discharge instructions and disposition.
--- NOTE | 2017-06-11 13:31 | RAD ---
HISTORY: COMPARISON: 02/14/2017. TECHNIQUE: Chest PA and lateral FINDINGS: LINES AND TUBES: None. LUNG AND PLEURA: The lungs are well inflated and clear. HEART AND MEDIASTINUM: The heart is not enlarged. The hilar and mediastinal contours are within normal limits. SKELETAL STRUCTURES: The bony structures are within normal limits for the patient's age. VISUALIZED UPPER ABDOMEN: Normal. OTHER FINDINGS: None. IMPRESSION: No active pulmonary disease.
[2017-06-11 13:33] VITALS: BP 123/79; PULSE 78; TEMP 98.8
[2017-06-11 13:36] VITALS: O2SAT 99
== END 2017-06-11 13:37 | disposition home or self-care (01) ==
LOC: C.ER 11:13
DX: J40 Bronchitis, not specified as acute or chronic (principal)

== ENCOUNTER 2017-08-20 00:54 | Emergency (ER) | payer MEDICAID ==
[2017-08-20 00:54] VITALS: BMI 34.5
--- NOTE | 2017-08-20 02:25 | C.PDOC ---
History Of Present Illness 47 year old female is brought to the ED for evaluation of a syncopal episode. As per family, patient was drank about 7-8 beers went to the bathroom to vomit and fainted. Patient is currently c/o headache. Patient denies CP, SOB, dizziness, weakness, numbness. Time Seen by Provider: 08/20/17 01:27 Chief Complaint (Nursing): Syncope History Per: Patient History/Exam Limitations: no limitations Onset/Duration Of Symptoms: Days Current Symptoms Are (Timing): Still Present Number Of Syncopal Episodes: 1 Activity At Onset Of Symptoms: Standing Associated Symptoms Preceding Syncopal Episode: No Predromal Symptoms (Sudden Onset) Seizure Or Post-ictal Symptoms: None Possible Causative Factor(s): Recent Alcohol Fall Associated With With Symptoms: No Severity: None Recent travel outside of the [place]: No Additional History Per: Patient Past Medical History Reviewed: Historical Data, Nursing Documentation, Vital Signs Vital Signs: Last Vital Signs Temp 98.1 F 08/20/17 05:10 Pulse 78 08/20/17 05:10 Resp 20 08/20/17 05:18 BP 120/89 08/20/17 05:10 Pulse Ox 98 08/20/17 05:19 - Medical History PMH: Gastritis, HTN Denies: Chronic Kidney Disease Surgical History: Endoscopy - [facility] Procedures APPLICATION OF SPLINT (09/18/13) CORONAR ARTERIOGR-2 CATH (09/21/14) LEFT HEART CARDIAC CATH (09/21/14) LT HEART ANGIOCARDIOGRAM (09/21/14) Family History: States: Unknown Family Hx, [place] - Social History Hx Tobacco Use: No Hx Alcohol Use: Yes ("social") Hx Substance Use: No - Immunization History Hx Tetanus Toxoid Vaccination: No Hx Influenza Vaccination: No Hx Pneumococcal Vaccination: No Review Of Systems Constitutional: Negative for: Fever, Chills Eyes: Negative for: Vision Change Cardiovascular: Negative for: Chest Pain Respiratory: Negative for: Shortness of Breath Gastrointestinal: Negative for: Nausea, Vomiting Neurological: Positive for: Headache. Negative for: Weakness, Numbness, Dizziness Physical Exam - Physical Exam Appears: Non-toxic, No Acute Distress Skin: Normal Color, Warm, Dry Head: Atraumatic, Normacephalic Eye(s): bilateral: Normal Inspection, PERRL, EOMI Nose: No Discharge Oral Mucosa: Moist Neck: Normal ROM, Supple Chest: Symmetrical Cardiovascular: Rhythm Regular, No Murmur Respiratory: Normal Breath Sounds, No Rales, No Rhonchi, No Wheezing Gastrointestinal/Abdominal: Soft, No Tenderness, No Guarding, No Rebound Extremity: Normal ROM, No Tenderness, No Swelling Neurological/Psych: Oriented x3, Normal Speech, Normal Motor, Normal Sensation Gait: Steady ED Course And Treatment - Laboratory Results Result Diagrams: 08/20/17 02:22 08/20/17 02:22 ECG Rhythm: Sinus Rhythm Interpretation Of ECG: Q at III, V2, V3 Rate From EC O2 Sat by Pulse Oximetry: 98 (ON RA) Pulse Ox Interpretation: Normal - Radiology CXR: Interpreted by Vt CXR Interpretation: Yes: Cardiomegaly - CT Scan/US CT head Other Rad Studies (CT/US): Read By Radiologist, Radiology Report Reviewed CT/US Interpretation: Name: ANDRÉS SCHAEFER Age: 47Years F Date: 2017. SSN: [id number]. Study: CT HEAD WO Requesting Physician: Alondra Suarez PA-C. Images: 132. Addl Studies: Page 1 of 2. EXAM: CT Head Without Intravenous Contrast. CLINICAL HISTORY: 47 years old, female; Pain; Headache and other: Syncope. TECHNIQUE: Axial computed tomography images of the head/brain without intravenous contrast. All CT scans at. this facility use one or more dose reduction techniques, viz.: automated exposure control; ma/kV. adjustment per patient size (including targeted exams where dose is matched to indication; i.e. head);. or iterative reconstruction technique. COMPARISON: No relevant prior studies available. FINDINGS: Brain: No intracranial hemorrhage. No mass. No definite edema. Ventricles: No hydrocephalus. Bones/joints: No acute fracture. Soft tissues: Unremarkable. Sinuses: Tiny LEFT sphenoid retention cyst. Mastoid air cells: No mastoid effusion. Orbits: Unremarkable as visualized. IMPRESSION: 1. No definite acute intracranial abnormality. 2. Incidental/non-acute findings are described above. Thank you for allowing us to participate in the care of your patient. Dictated and Authenticated by: Freddie Ortega MD. 08/20/2017 4:37 AM Eastern Time ([place] & [place]) Progress Note: Plan: - Labs. - UA Against Medical Advice - AMA Patient Left Against Medical Advice: The patient declines admission to the hospital and wishes to leave the Emergency Department. This action is against my medical advice. This decision was made with informed refusal. The patient was told that admission to the hospital is necessary. Explanation of the reasons why were discussed. The risks of leaving were explained to the patient and include, but are not limited to, worsening of known or currently unknown conditions, permanent disability and from undiagnosed or untreated conditions. The patient has the capacity to make this informed decision and understands my explanation of the current medical problem and risks of leaving. The patient voluntarily accepts these risks and signed an AMA form documenting our conversation. The patient was given the opportunity to ask questions and reconsider. The patient was encouraged to return to the Emergency Department at any time for further care. 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 - Scribe Statement The provider has reviewed the documentation as recorded by the Scribe Omi Amato All medical record entries made by the Scribe were at my direction and personally dictated by me. I have reviewed the chart and agree that the record accurately reflects my personal performance of the history, physical exam, medical decision making, and the department course for this patient. I have also personally directed, reviewed, and agree with the discharge instructions and disposition.
[2017-08-20 02:27] LABS: BASO # 0.1 K/uL (0.0-0.2); EOS # 0.2 K/uL (0.0-0.7); EOS % 1.9 % (0.0-4.0); HEMOGLOBIN 14.2 g/dL (11.0-16.0); LYMPH # 2.1 K/uL (1.0-4.3); LYMPH % 22.2 % (20.0-40.0); MEAN CELL VOLUME 87.5 fL (81.0-99.0); MEAN CORPUSCULAR HEMOGLOBIN 30.5 pg (27.0-31.0); MEAN CORPUSCULAR HGB CONC 34.8 g/dL (33.0-37.0); MEAN PLATELET VOLUME 8.6 fL (7.2-11.7); MONO # 0.4 K/uL (0.0-0.8); MONO % 4.6 % (0.0-10.0); NEUT # 6.8 K/uL (1.8-7.0); NEUT % 70.3 % (50.0-75.0); NRBC % 0.1 % (0.0-2.0); RBC 4.66 Mil/uL (3.80-5.20); RED CELL DISTRIBUTION WIDTH 13.9 % (11.5-14.5); WHITE BLOOD COUNT 9.7 K/uL (4.8-10.8)
[2017-08-20 02:30] LABS: INR 1.1; PROTHROMBIN TIME 12.1 SECONDS (9.7-12.2)
[2017-08-20 02:48] LABS: HCG,QUALITATIVE URINE NEGATIVE (NEGATIVE)
[2017-08-20 02:50] LABS: ALB/GLOB RATIO 1.3 (1.0-2.1); ALBUMIN 3.8 g/dL (3.5-5.0); ALT/SGPT 26 U/L (9-52); AST/SGOT 22 U/L (14-36); BLOOD UREA NITROGEN 7 mg/dL (7-17); CALCIUM 8.6 mg/dl (8.6-10.4); GFR AFRICAN-AMERICAN > 60; GFR NON-AFRICAN AMERICAN > 60
[2017-08-20 02:52] LABS: SQUAMOUS EPITHIAL 4 /hpf (0-5); URINE BILIRUBIN NEGATIVE (NEGATIVE); URINE BLOOD NEGATIVE (NEGATIVE); URINE CLARITY Clear (Clear); URINE COLOR Straw (YELLOW); URINE GLUCOSE (UA) NORMAL (Normal); URINE LEUKOCYTE ESTERASE NEG Leu/uL (Negative); URINE PROTEIN NEGATIVE (NEGATIVE); URINE UROBILINOGEN NORMAL mg/dL (0.2-1.0)
[2017-08-20 02:54] LABS: BARBITURATES, UR NEGATIVE (NEGATIVE); BENZODIAZEPINES, UR NEGATIVE (NEGATIVE); OPIATES, UR NEGATIVE (NEGATIVE); PHENCYCLIDINE, UR NEGATIVE (NEGATIVE)
[2017-08-20 03:03] LABS: CK-MB 0.58 ng/mL (0.0-3.38)
--- NOTE | 2017-08-20 04:37 | CT ---
EXAM: CT Head Without Intravenous Contrast CLINICAL HISTORY: 47 years old, female; Pain; Headache and other: Syncope TECHNIQUE: Axial computed tomography images of the head/brain without intravenous contrast. All CT scans at this facility use one or more dose reduction techniques, viz.: automated exposure control; ma/kV adjustment per patient size (including targeted exams where dose is matched to indication; i.e. head); or iterative reconstruction technique. COMPARISON: No relevant prior studies available. FINDINGS: Brain: No intracranial hemorrhage. No mass. No definite edema. Ventricles: No hydrocephalus. Bones/joints: No acute fracture. Soft tissues: Unremarkable. Sinuses: Tiny LEFT sphenoid retention cyst. Mastoid air cells: No mastoid effusion. Orbits: Unremarkable as visualized. IMPRESSION: 1. No definite acute intracranial abnormality. 2. Incidental/non-acute findings are described above.
[2017-08-20 05:11] VITALS: BP 120/89; PULSE 78; TEMP 98.1
[2017-08-20 05:18] VITALS: O2SAT 98
[2017-08-20 05:27] VITALS: RESP 20
--- NOTE | 2017-08-20 09:06 | RAD ---
HISTORY: syncope COMPARISON: Chest radiographs 06/11/2017. FINDINGS: LUNGS: Diminished inspiratory volume noted. Right-sided aortic arch reiterated. Current other right infrahilar bronchovascular markings is questioned versus interval infiltrate. No left-sided infiltrate. PLEURA: No significant pleural effusion identified, no pneumothorax apparent. CARDIOVASCULAR: Normal. OSSEOUS STRUCTURES: No significant abnormalities. VISUALIZED UPPER ABDOMEN: Normal. OTHER FINDINGS: None. IMPRESSION: Diminished inspiratory volume noted. Limited airspace disease versus crowding of the bronchovascular markings in the right infrahilar space. Clinically correlate. Remaining lung avila clear.
--- NOTE | 2017-08-21 11:35 | CARD ---
APPROVED REPORT EKG Measurement Heart [id number] <Conclusion> Normal sinus rhythm Anteroseptal infarct, age undetermined Abnormal ECG
== END 2017-08-20 05:18 | disposition left against medical advice (07) ==
LOC: C.ER 00:54
DX: R55 Syncope and collapse (principal)